=== PATIENT | female | born 1975 | race Caucasian/White ===

== ENCOUNTER 2019-04-23 17:29 | Emergency (ER) | payer OTHER, SELFPAY ==
--- NOTE | ~2019-04-23 | XR_ITS ---
EXAMINATION: XR lumbar spine 2-3V DATE: 04/23/2019 18:43 INDICATION: Low back pain TECHNIQUE: Anteroposterior and lateral views of the lumbar spine, and cone-down lateral view of the l umbosacral junction were obtained. COMPARISON: 11/26/2009 FINDINGS: There is a chronic 2.4 cm stone projecting in the lower pole of the left kidney. No stones project along the expected course of the ureters. Surgical clips in the right upper quadrant are like ly from prior cholecystectomy. A moderate volume of colonic stool is present. There is mild loss of i ntervertebral disc space height at L5-S1. The vertebral body heights and alignment are normal. There is no fracture. Small degenerative osteophytes project from the anterior endplates of multiple verteb ral bodies. IMPRESSION: 1. Mild lumbar spondylosis without acute findings or significant interval change. 2. Unchanged left nephrolithiasis. Reviewed, dictated and finalized at location A. FELLER OPERATOR IMPRESSION: 1. Mild lumbar spondylosis without acute findings or significant interval brown e. 2. Unchanged left nephrolithiasis.
[2019-04-23 18:09] VITALS: BP 125/63; PULSE 76; RESP 18; TEMP 36.8; O2SAT 100
[2019-04-23] MEDS: KETOROLAC (*BKC) 60 MG/2 ML VIAL 30 MG IM (18:29)
[2019-04-23] MEDS: methylPREDNISolone SOD SUCC 125 MG VIAL IM (18:30)
--- NOTE | 2019-04-23 19:27 | ED.BACK ---
HPI - Back Pain/Injury General Chief Complaint: Back Pain/Injury <Mavis Gleason PA-C - Last Filed: 04/23/19 21:22> Stated Complaint: back pain <SHANNON Vaughan Last Filed: 04/23/19 21:22> Time Seen by Provider: 04/23/19 17:43 <SHANNON Vaughan Last Filed: 04/23/19 21:22> Source: patient <SHANNON Vaughan Last Filed: 04/23/19 21:22> Mode of arrival: ambulatory <SHANNON Vaughan Last Filed: 04/23/19 21:22> Limitations: no limitations <SHANNON Vaughan Last Filed: 04/23/19 21:22> History of Present Illness HPI Narrative: Patient presents with chief complaint of pain to the low back that occasionally radiates down her right leg. 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 Patient states she has had issues with sciatica in the past. Patient states she has been taking Tylenol for pain as she is unable to take oral NSAIDs due to gastric sleeve. Patient states that symptoms have been intermittent over the past 2 to 3 weeks. Patient states she has an appointment with her primary care on Tuesday but she cannot wait due to discomfort. Patient denies any urinary symptoms, radiation of pain into the groin or other signs of kidney stone. Patient denies chance of . <Mavis Gleason PA-C - Last Filed: 04/23/19 21:22> Related Data Home Medications: Home Medications Medication Instructions Recorded Confirmed bupropion HCl PO 04/23/19 buspirone mg 04/23/19 escitalopram oxalate mg 04/23/19 levothyroxine 04/23/19 loratadine mg 04/23/19 ropinirole mg 04/23/19 <Mavis Gleason PA-C - Last Filed: 04/23/19 21:22> Allergies/Adverse Reactions: Allergies Allergy/AdvReac Type Severity Reaction Status Date / Time NSAIDS (Non-Steroidal AdvReac Unknown Other Verified 04/23/19 18:20 Anti-Inflamma <Mavis Gleason PA-C - Last Filed: 04/23/19 21:22> Review of Systems Review of Systems: Narrative: CONSTITUTIONAL: Denies fever, chills, or sweats. EYES: Denies visual changes, redness, or discharge. ENT: Denies rhinorrhea, congestion, sore throat, or otalgia. CARDIOVASCULAR: Denies chest pain, palpitations, or edema. RESPIRATORY: Denies cough or dyspnea. GASTROINTESTINAL: Denies abdominal pain, nausea, vomiting, or diarrhea. GENITOURINARY: Denies dysuria or hematuria. SKIN: Denies rash or itching. MUSCULOSKELETAL: Reports back pain, denies joint pain, or myalgia. NEUROLOGIC: Denies headache, numbness, dizziness, or weakness. PSYCHIATRIC: Denies anxiety or depression. <Mavis Gleason PA-C - Last Filed: 04/23/19 21:22> PMFSH Past Medical History Medical History: Medical History (Updated 04/24/19 @ 00:00 by Ellie Do) Anxiety Depression Hypothyroidism <Mavis Gleason PA-C - Last Filed: 04/23/19 21:22> Surgical History Surgical History: Surgical History (Updated 04/23/19 @ 19:30 by Mavis Gleason PA-C) History of gastric surgery <Mavis Gleason PA-C - Last Filed: 04/23/19 21:22> Social History Social History: Social History (Updated 04/23/19 @ 19:31 by Mavis Gleason PA-C) Smoking status: Never smoker Substance use: never Gender identity (if verbalized by the patient): Female <Mavis Gleason PA-C - Last Filed: 04/23/19 21:22> Exam Narrative: Exam Narrative: GENERAL: Well-appearing, well-nourished, and in no acute distress. HEAD: Normocephalic, atraumatic. EYES: PERRLA and EOMI. ENT: Nares clear, no rhinorrhea or epistaxis. Mucous membranes moist. Oropharynx without tonsillar hypertrophy exudate or other lesions. Bilateral TMs pearly kearns nonbulging NECK: Supple. No adenopathy or masses. Range of motion intact CHEST: Clear to auscultation. No respiratory distress. No wheezes rales or rhonchi HEART: Regular rate and rhythm. No murmur heard. Normal peripheral pulses. BACK: Diffuse low back pain. No vertebral point tenderne
[2019-04-23 19:44] VITALS: BP 135/82; PULSE 84; RESP 16; TEMP 37; O2SAT 100
== END 2019-04-23 19:47 | disposition home or self-care (01) ==
PROVIDERS: Emergency Provider Emergency Medicine; PCP Physician Assistant
DX: S39.012A Strain of muscle, fascia and tendon of lower back, initial encounter (principal); M54.41 Lumbago with sciatica, right side; F41.9 Anxiety disorder, unspecified; F32.9 Major depressive disorder, single episode, unspecified; E03.9 Hypothyroidism, unspecified; X50.0XXA Overexertion from strenuous movement or load, initial encounter
CPT/HCPCS: 72100; 96372; 99284; J1885; J2930

== ENCOUNTER 2019-05-03 17:00 | Outpatient (CLI) | payer OTHER, SELFPAY ==
--- NOTE | ~2019-05-03 | MR_ITS ---
EXAMINATION: MR lumbar spine wo con DATE: 05/03/2019 17:29 INDICATION: Acute bilateral low back pain. TECHNIQUE: Magnetic resonance imaging (MRI) of the lumbar spine was performed without intravenous con trast. Sequences included sagittal T2-weighted FSE, sagittal T2-weighted FS FSE, sagittal T1-weighted FSE, and axial T2-weighted FSE. COMPARISON: Lumbar spine radiographs 04/23/2019 FINDINGS: There is 4 degrees levocurvature of lumbar spine. There is mild chronic anterior wedging of T11 and T12 vertebral bodies, likely physiologic. There is mildly decreased disc height at L2-L3 and L3-L4. The distal spinal cord signal intensity is normal. The conus medullaris is at L1-L2. There is a 17 mm stone in left kidney lower pole. There is mild left hydronephrosis with transition point at the ureteropelvic junction. The following disc levels are specifically discussed: L1-L2: The disc does not extend beyond the endplate margin. There is mild bilateral facet joint osteo arthritis. There is no neural foraminal stenosis. There is no central canal stenosis. L2-L3: The disc is bulging and has an annular fissure. There is mild bilateral facet joint osteoarthr itis. There is mild bilateral neural foraminal stenosis. There is mild central canal stenosis. L3-L4: The disc is bulging with superimposed right subarticular extrusion. There is mild bilateral fa cet joint osteoarthritis. There is mild bilateral neural foraminal stenosis. There is mild central ca nal stenosis. L4-L5: The disc is bulging. There is mild bilateral facet joint osteoarthritis. There is mild bilater al neural foraminal stenosis. There is mild central canal stenosis. L5-S1: The disc does not extend beyond the endplate margin. There is mild right facet joint osteoarth ritis. There is no neural foraminal stenosis. There is no central canal stenosis. IMPRESSION: 1. Mild lumbar spondylosis. 2. 17 mm left kidney stone. 3. Mild left hydronephrosis with transition point at the ureteropelvic junction. Reviewed, dictated and finalized at location A. UNICATIONS PROJECT LEAD IMPRESSION: 1. Mild lumbar spondylosis. 2. 17 mm left kidney stone. 3. Mild left hydronephrosis with transition point at the ureteropelvic junction .
== END 2019-05-03 17:01 | disposition home or self-care (01) ==
PROVIDERS: PCP Physician Assistant
DX: M54.5 Low back pain (principal); M47.816 Spondylosis without myelopathy or radiculopathy, lumbar region; N20.0 Calculus of kidney; N13.30 Unspecified hydronephrosis
CPT/HCPCS: 72148

== ENCOUNTER 2019-05-11 10:20 | Outpatient (CLI) | payer OTHER, SELFPAY ==
--- NOTE | ~2019-05-11 | CT_ITS ---
EXAMINATION: CT abdomen pelvis wo con DATE: 05/11/2019 10:36 INDICATION: Calculus of kidney TECHNIQUE: Computed tomography (CT) of the abdomen and pelvis was performed without intravenous contr ast. The dose-length product (DLP) was 426.76 mGy-cm. Automated exposure control and iterative recons truction technique were employed. COMPARISON: MRI, 05/03/2019 FINDINGS: Minimal dependent atelectasis is present in the lung bases. The heart size is normal. Small sliding hiatal hernia is present. Surgical changes in the stomach are consistent with gastric bypass . The gallbladder is surgically absent. The liver, spleen, pancreas, and adrenal glands are normal. T he right kidney is unremarkable. There is a 2.0 cm stone of the left kidney lower pole. There is unch anged mild left hydronephrosis with transition point at the ureteropelvic junction. No pathologically enlarged abdominal or pelvic lymph nodes are identified. There is no free intraperitoneal gas or olive dence of bowel obstruction. A moderate volume of colonic stool is present. There is mild lumbar spond ylosis. IMPRESSION: 1. Stable mild left hydronephrosis with transition point at the left ureteropelvic junction. 2. 2 cm nonobstructing stone of the left kidney lower pole. Reviewed, dictated and finalized at location A. UCTION CONTROL MANAGER IMPRESSION: 1. Stable mild left hydronephrosis with transition point at the left ureteropel shayna junction. 2. 2 cm nonobstructing stone of the left kidney lower pole.
== END 2019-05-11 10:21 | disposition home or self-care (01) ==
PROVIDERS: PCP Physician Assistant; Visit Provider Physician Assistant
DX: N20.0 Calculus of kidney (principal)
CPT/HCPCS: 74176

== ENCOUNTER 2019-06-20 14:25 | Outpatient (CLI) | payer OTHER, SELFPAY ==
--- NOTE | ~2019-06-20 | MR_ITS ---
EXAMINATION: MR thoracic spine wo con EXAM DATE: 06/20/2019 16:24 INDICATION: Mid back pain, left leg pain. TECHNIQUE: Multi-sequential, multiplanar MR images of the thoracic spine were obtained without contra st. Sagittal T1, T2, T2 fat saturation, axial T2 weighted images reviewed. There is no prior study for comparison. FINDINGS: The vertebral bodies are aligned in the AP dimension. Mild mid thoracic disc disease.. Ther e are small mid thoracic disc protrusions without causing significant neural foraminal stenosis. Ther e is a midthoracic 1 cm hemangioma. The vertebral body marrow is otherwise normal in signal intensity . There is mild thoracic facet arthropathy. Neural foramen are widely patent. The spinal cord signal intensity and intrinsic morphology is normal. IMPRESSION: Mild thoracic spondylosis. Normal cord signal. Reviewed, dictated and finalized at location B.
--- NOTE | ~2019-06-20 | MR_ITS ---
EXAMINATION: MR cervical spine wo con EXAM DATE: 06/20/2019 16:24 INDICATION: Low back pain, right lumbar radiculopathy. Left leg pain. TECHNIQUE: Multi-sequential, multiplanar MR images of the cervical spine were obtained without contra st. Axial T2, axial T2 MERGE sequence. Sagittal T1, T2, T2 fat saturation images also obtained. Th ere is no prior study for comparison. FINDINGS: The vertebral bodies are aligned in the AP dimension. There is mild mid lumbar disc diseas e. Vertebral body heights are maintained. The spinal cord signal intensity and intrinsic morphology i s normal. Cervicomedullary junction is normal in appearance. There are no suspicious marrow signal ab normalities. Paraspinal soft tissue is unremarkable. Level by level evaluation: C2-C3: Disc does not extend beyond the endplate margin. Uncovertebral joint arthropathy: Mild left. Facet joint arthropathy: Mild bilateral. Neural foraminal stenosis: No stenosis. Central canal stenosis: No stenosis. C3-C4: Disc does not extend beyond the endplate margin. Uncovertebral joint arthropathy: Minimal bilateral. Facet joint arthropathy: Mild bilateral. Neural foraminal stenosis: No stenosis. Central canal stenosis: No stenosis. C4-C5: Mild bilateral Uncovertebral joint arthropathy: Mild bilateral. Facet joint arthropathy: Mild right. Neural foraminal stenosis: No stenosis. Central canal stenosis: No stenosis. C5-C6: There is a mild diffuse disc bulge. Uncovertebral joint arthropathy: Mild bilateral. Facet joint arthropathy: Mild bilateral. Neural foraminal stenosis: Mild bilateral. Central canal stenosis: Minimal. C6-C7: There is a mild diffuse disc bulge. Uncovertebral joint arthropathy: Mild to moderate bilateral. Facet joint arthropathy: Mild bilateral. Neural foraminal stenosis: Mild to moderate bilateral. Central canal stenosis: Mild. C7-T1: Disc does not extend beyond the endplate margin. Uncovertebral joint arthropathy: None. Facet joint arthropathy: None. Neural foraminal stenosis: No stenosis. Central canal stenosis: No stenosis. IMPRESSION: 1. Mild cervical spondylosis. 2. Normal cord signal. Reviewed, dictated and finalized at location B.
== END 2019-06-20 14:26 | disposition home or self-care (01) ==
PROVIDERS: PCP Physician Assistant
DX: M79.605 Pain in left leg (principal); M47.892 Other spondylosis, cervical region; M47.894 Other spondylosis, thoracic region
CPT/HCPCS: 72141; 72146

== ENCOUNTER 2019-11-19 15:41 | Emergency (ER) | payer OTHER, SELFPAY ==
[2019-11-19 15:55] VITALS: BP 134/74; PULSE 105; RESP 16; TEMP 37.9; O2SAT 99
--- NOTE | 2019-11-19 15:57 | ED.GENADULT ---
HPI - General Adult General Chief complaint: Upper Respiratory Infection Stated complaint: sore throat Time Seen by Provider: 11/19/19 15:57 Source: patient Mode of arrival: ambulatory Limitations: no limitations History of Present Illness HPI narrative: 44-year-old female patient presents to the [facility] with complaints of sore throat for the past 3 days. Patient states that she has been very sore that it hurts to eat or swallow. Patient states she has not taken anything for pain. Patient denies any fevers, body aches or chills. Denies any ear pain but states that the glands her neck are sore. Denies any chest pain, shortness of breath, abdominal pain, nausea, vomiting or diarrhea. Related Data Home Medications Medication Instructions Recorded Confirmed bupropion HCl 100 mg PO DAILY 04/23/19 11/19/19 buspirone 7.5 mg DAILY 04/23/19 11/19/19 escitalopram oxalate 20 mg DAILY 04/23/19 11/19/19 loratadine 10 mg DAILY 04/23/19 11/19/19 ropinirole 0.5 mg DAILY 04/23/19 11/19/19 gabapentin 300 mg DAILY 11/19/19 11/19/19 levothyroxine [Euthyrox] 75 mcg DAILY 11/19/19 11/19/19 Allergies Allergy/AdvReac Type Severity Reaction Status Date / Time NSAIDS (Non-Steroidal AdvReac Unknown Other Verified 11/19/19 15:50 Anti-Inflamma Review of Systems Review of Systems: Narrative: CONSTITUTIONAL: Denies fever, chills, or sweats. EYES: Denies visual changes, redness, or discharge. ENT: Denies rhinorrhea, congestion, positive sore throat, denies otalgia. CARDIOVASCULAR: Denies chest pain, palpitations, or edema. RESPIRATORY: Denies cough or dyspnea. GASTROINTESTINAL: Denies abdominal pain, nausea, vomiting, or diarrhea. GENITOURINARY: Denies dysuria or hematuria. SKIN: Denies rash or itching. MUSCULOSKELETAL: Denies back pain, joint pain, or myalgia. NEUROLOGIC: Denies headache, numbness, or weakness. PSYCHIATRIC: Denies anxiety or depression. [facility] Past Medical History Medical History Anxiety Depression Hypothyroidism Surgical History Surgical History History of gastric surgery Social History Social History Smoking status: Never smoker Substance use: never Gender identity (if verbalized by the patient): Female Comments At the time of my signature I agree with nursing past medical history, surgical, social, and family history. There is no relevant family history pertinent to the presenting complaint. Exam Narrative: Exam Narrative: GENERAL: Well-appearing, well-nourished, and in no acute distress. HEAD: Normocephalic, atraumatic. EYES: PERRLA and EOMI. ENT: Nares clear, no rhinorrhea or epistaxis. Mucous membranes moist. Posterior pharynx with erythema, 2+ tonsil enlargement and exudate noted on the right side. Bilateral TMs are clear no erythema or foreign bodies to the canal. NECK: Supple. No lymphadenopathy CHEST: Clear to auscultation. No respiratory distress. HEART: Regular rate and rhythm. No murmur heard. Normal peripheral pulses. ABDOMEN: Soft, nontender, nondistended, normal active bowel sounds. EXTREMITIES: Normal range of motion. No edema. SKIN: Warm, dry, no rash. NEURO: No focal deficits. Alert and oriented x3. Course Reevaluation(s) Reevaluation #1: Reevaluated patient. Notified her that she is positive today for strep. Discussed with her we will discharge her home with some antibiotics for the strep infection. Patient verbalized understanding. Discussed with patient that I highly recommend that she get some [id number] Chloraseptic spray to help her swallow and stay hydrated. Patient verbalized understanding of this denies any other questions or concerns at this time. Date: 11/19/19 Time: 16:14 Vital Signs Vital signs: Vital Signs Temperature 37.9 C H 11/19/19 15:55 Pulse Rate 105 H 11/19/19 15:55 Respiratory Rate
== END 2019-11-19 16:16 | disposition home or self-care (01) ==
PROVIDERS: Emergency Provider Nurse Practitioner Family; PCP Physician Assistant
DX: J02.0 Streptococcal pharyngitis (principal); E03.9 Hypothyroidism, unspecified; F41.9 Anxiety disorder, unspecified; F32.9 Major depressive disorder, single episode, unspecified; Z98.84 Bariatric surgery status
CPT/HCPCS: 87880; 99213; G0463

== ENCOUNTER 2021-03-09 11:38 | Emergency (ER) | payer OTHER, SELFPAY ==
[2021-03-09 11:52] VITALS: BP 115/63; PULSE 80; RESP 16; TEMP 36.8; O2SAT 99
[2021-03-09 11:53] VITALS: BP 115/63; PULSE 80; RESP 16; TEMP 36.8; O2SAT 99
--- NOTE | 2021-03-09 12:51 | ED.URI ---
HPI - URI/Sore Throat General Chief Complaint: Upper Respiratory Infection Stated Complaint: Sinus pressure, runny nose, cough Time Seen by Provider: 03/09/21 12:51 Source: patient Mode of arrival: ambulatory Limitations: no limitations History of Present Illness HPI Narrative: Sully Beebe is a 45 yo female with PMH of anxiety and deptression, hypothyroid, who [facility] sinus pressure, runny nose, cough she is afebrile vital signs are stable. PCPs office she states would not see her without her getting a Covid test first Related Data Home Medications Medication Instructions Recorded Confirmed bupropion HCl 100 mg PO DAILY 04/23/19 03/09/21 buspirone 7.5 mg DAILY 04/23/19 03/09/21 escitalopram oxalate 20 mg DAILY 04/23/19 03/09/21 loratadine 10 mg DAILY 04/23/19 03/09/21 gabapentin 300 mg DAILY 11/19/19 03/09/21 levothyroxine [Euthyrox] 75 mcg DAILY 11/19/19 03/09/21 Allergies Allergy/AdvReac Type Severity Reaction Status Date / Time NSAIDS (Non-Steroidal AdvReac Unknown Other Verified 03/09/21 12:06 Anti-Inflamma Review of Systems Review of Systems: CONSTITUTIONAL: Denies fever, chills, sweats. EYES: Denies visual changes, redness, discharge. ENT: Has rhinorrhea, has congestion, sore throat, otalgia. CARDIOVASCULAR: Denies chest pain, palpitations, edema. RESPIRATORY: Denies dyspnea, wheezing, has cough GASTROINTESTINAL: Denies abdominal pain, nausea, vomiting, diarrhea. GENITOURINARY: Denies dysuria, hematuria, abnormal discharge SKIN: Denies rash or itching. NEUROLOGIC: Denies numbness, or focal weakness. PSYCHIATRIC: Denies anxiety or depression. [facility] Past Medical History Medical History (Updated 03/09/21 @ 13:04 by Ledy Medrano CNP) Anxiety Depression Hypothyroidism Surgical History Surgical History History of gastric surgery Social History Social History Smoking status: Never smoker Alcohol use details: none Substance use: never Gender identity (if verbalized by the patient): Female Comments At time of signature, I agree with nursing past medical, surgical, social and family history. There is no relevant family history pertinent to the presenting complaint. Exam Narrative: GENERAL: This is a well-nourished, well-developed patient, in mild distress. HEAD: normocephalic, atraumatic. EYES: Sclera clear/white. Vision is grossly intact. EARS: External ears normal, auditory canals erythema and without drainage, TMs normal without perforation. Hearing grossly intact. NOSE: External nose normal without nasal discharge, nares without redness, mild rhinorrhea. THROAT: Mucous membranes moist, posterior pharynx scratchy and erythema NECK: Neck supple, non-tender CARDIOVASCULAR: Regular rate and rhythm without murmurs, gallops, or rubs. RESPIRATORY: Clear to auscultation. Breath sounds equal bilaterally. No wheezes, rales, or rhonchi. GASTROINTESTINAL: Abdomen soft, non-tender, SKIN: warm, intact with no suspicious lesions or rash, good texture and turgor. NEURO: awake, alert, and oriented to person, place and time. There were no obvious focal neurologic abnormalities. Steady gait EXTREMITIES: Normal range of motion. 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
== END 2021-03-09 13:15 | disposition home or self-care (01) ==
PROVIDERS: Emergency Provider Nurse Practitioner
DX: J06.9 Acute upper respiratory infection, unspecified (principal); Z20.822 Contact with and (suspected) exposure to COVID-19; E03.9 Hypothyroidism, unspecified; F32.9 Major depressive disorder, single episode, unspecified; F41.9 Anxiety disorder, unspecified
CPT/HCPCS: 99213; G0463

== ENCOUNTER 2023-05-07 11:25 | Emergency (ER) | payer OTHER, SELFPAY ==
[2023-05-07 11:49] VITALS: BP 130/79; PULSE 81; RESP 16; TEMP 36.6; O2SAT 99
--- NOTE | 2023-05-07 12:47 | ED.URI ---
HPI - URI/Sore Throat General Chief Complaint: Upper Respiratory Infection Stated Complaint: Sinus Time Seen by Provider: 05/07/23 12:47 Source: patient Mode of arrival: ambulatory Limitations: no limitations History of Present Illness HPI Narrative: 47-year-old female presents with complaint nasal congestion, sinus pressure, postnasal drainage since mid March. States she took amoxicillin for 7 days with no improvement in symptoms. Takes Елена daily. Has not tried any other [id number] medications to treat symptoms such as a nasal spray. Patient has not seen her primary care physician for this complaint. Afebrile. All systems reviewed and negative except as noted above. Related Data Home Medications Medication Instructions Recorded Confirmed bupropion HCl 100 mg tablet,12 hr 100 mg PO DAILY 04/23/19 03/09/21 sustained-release buspirone 7.5 mg tablet 15 mg DAILY 04/23/19 03/09/21 escitalopram oxalate 20 mg tablet 10 mg DAILY 04/23/19 03/09/21 loratadine 10 mg tablet 10 mg DAILY 04/23/19 03/09/21 gabapentin 300 mg capsule 300 mg DAILY 11/19/19 03/09/21 levothyroxine 88 mcg tablet 88 mcg PO DAILY 05/07/23 05/07/23 ropinirole 0.5 mg tablet 0.5 mg PO DAILY 05/07/23 05/07/23 Allergies Allergy/AdvReac Type Severity Reaction Status Date / Time NSAIDS (Non-Steroidal AdvReac Unknown Other Verified 05/07/23 11:53 Anti-Inflamma Review of Systems Review of Systems: CONSTITUTIONAL: Denies fever, chills, or sweats. EYES: Denies visual changes, redness, or discharge. ENT: Reports rhinorrhea, congestion, sinus pressure. Reports sore throat, or otalgia. CARDIOVASCULAR: Denies chest pain, palpitations, or edema. RESPIRATORY: Denies cough or dyspnea. GASTROINTESTINAL: Denies abdominal pain, nausea, vomiting, or diarrhea. GENITOURINARY: Denies dysuria or hematuria. SKIN: Denies rash or itching. MUSCULOSKELETAL: Denies back pain, joint pain, or myalgia. NEUROLOGIC: Denies headache, numbness, or weakness. PSYCHIATRIC: Denies anxiety or depression. All other systems reviewed are negative, except as documented in HPI. [facility] Past Medical History Medical History (Updated 05/07/23 @ 12:53 by Anni Villagran NP) Anxiety Depression Hypothyroidism Surgical History Surgical History History of gastric surgery Social History Social History Smoking status: Never smoker Alcohol use details: none Substance use: never Gender identity (if verbalized by the patient): Female Comments At time of signature, agree with nursing past medical, surgical, social and family history. There is no relevant family history pertinent to the presenting complaint. Exam Narrative: GENERAL: This is a well-nourished, well-developed patient, in no apparent distress. HEAD: normocephalic, atraumatic. EYES: PERRL. Sclera clear/white. Vision is grossly intact. EARS: External ears normal, auditory canals clear and without drainage, Fluid to bilateral TMs without erythema or perforation. Hearing grossly intact. NOSE: External nose normal with purulent nasal drainage, erythema and swelling to bilateral nares, large amount of congestion. Frontal and maxillary sinus tenderness on palpation. THROAT: Mucous membranes moist, postnasal drainage NECK: Neck supple, non-tender without lymphadenopathy, masses or thyromegaly. CARDIOVASCULAR: Regular rate and rhythm without murmurs, gallops, or rubs. RESPIRATORY: Clear to auscultation. Breath sounds equal bilaterally. No wheezes, rales, or rhonchi. SKIN: warm, Dry, intact with no suspicious lesions or rash, good texture and turgor. NEURO: awake, alert, and oriented to person, place and time. There were no obvious focal neurologic abnormalities. EXTREMITIES: No joint tenderness, effusion, or edema noted. Course Course Level of Care: Express Care Visit Shanelle
== END 2023-05-07 12:55 | disposition home or self-care (01) ==
PROVIDERS: Emergency Provider Nurse Practitioner Family; PCP Physician Assistant
DX: J01.90 Acute sinusitis, unspecified (principal); F41.9 Anxiety disorder, unspecified; F32.A Depression, unspecified; E03.9 Hypothyroidism, unspecified
CPT/HCPCS: 99213; G0463

== ENCOUNTER 2023-11-06 08:52 | Emergency (ER) | payer OTHER, SELFPAY ==
--- NOTE | 2023-11-06 09:31 | PC.NURSE ---
see down time documentation. dylon so rn
--- NOTE | 2023-11-06 11:00 | PC.NURSE ---
SEE DOWNTIME DOCUMENTATION. LUIS JACKSON RN
== END 2023-11-06 09:35 | disposition home or self-care (01) ==
PROVIDERS: Emergency Provider Nurse Practitioner; PCP Physician Assistant
DX: J01.90 Acute sinusitis, unspecified (principal); Z98.84 Bariatric surgery status
CPT/HCPCS: 99213; G0463

== ENCOUNTER 2024-04-18 10:07 | Emergency (ER) | payer OTHER, SELFPAY ==
--- NOTE | 2024-04-18 10:15 | ED_ITS ---
HPI - URI/Sore Throat General Chief Complaint: Upper Respiratory Infection Stated Complaint: Cough/Sinus Time Seen by Provider: 04/18/24 10:51 Source: patient and RN notes reviewed Mode of arrival: ambulatory Limitations: no limitations History of Present Illness HPI Narrative: 48-year-old female presents concern for 3-4 day history of sinus congestion, drainage, sinus pressure and headaches. Reports cough that is productive. Reports cough makes her chest tight in uncomfortable. Reports body aches sore drip, low-grade temperature. Reports she has been taking [id number] medications without MD elicited complaint: cough and nasal congestion Related Data Home Medications ?Medication ?Instructions ?Recorded ?Confirmed ?Last Taken ?Type bupropion HCl 100 mg tablet,12 hr 100 mg PO DAILY 04/23/19 03/09/21 Unknown History sustained-release buspirone 7.5 mg tablet 15 mg DAILY 04/23/19 03/09/21 Unknown History escitalopram oxalate 20 mg tablet 10 mg DAILY 04/23/19 03/09/21 Unknown History loratadine 10 mg tablet 10 mg DAILY 04/23/19 03/09/21 Unknown History gabapentin 300 mg capsule 300 mg DAILY 11/19/19 03/09/21 Unknown History levothyroxine 88 mcg tablet 88 mcg PO DAILY 05/07/23 05/07/23 Unknown History ropinirole 0.5 mg tablet 0.5 mg PO DAILY 05/07/23 05/07/23 Unknown History Allergies Allergy/AdvReac Type Severity Reaction Status Date / Time NSAIDS (Non-Steroidal AdvReac Unknown Other Verified 04/18/24 10:16 Anti-Inflamma Review of Systems Review of Systems: CONSTITUTIONAL: Reports malaise, low-grade fever. EYES: Denies visual changes, redness, or discharge. ENT: Reports rhinorrhea, congestion, sinus pain, otalgia and sore throat. CARDIOVASCULAR: Denies chest pain, palpitations, or edema. RESPIRATORY: Reports productive cough. Denies dyspnea. GASTROINTESTINAL: Denies abdominal pain, nausea, vomiting, diarrhea SKIN: Denies rash or itching. MUSCULOSKELETAL: Reports myalgia. NEUROLOGIC: Reports headache. All systems reviewed & are unremarkable except as noted in HPI and below PMFSH Past Medical History Medical History (Updated 04/18/24 @ 10:59 by Kerri Lima NP) Hypothyroidism Depression Anxiety Surgical History Surgical History History of gastric surgery Social History Social History Smoking status: Never smoker Alcohol use details: none Substance use: never Gender identity (if verbalized by the patient): Female Comments At time of signature, agree with nursing past medical, surgical, social and f amily history. There is no relevant family history pertinent to the presenting complaint Exam Narrative: GENERAL: Nontoxic-appearing, well-nourished, and in no acute distress. HEAD: Normocephalic EYES: PERRLA, conjunctivae clear ENT: Nares clear. Mucous membranes moist. TM pearly kearns with dull light reflex bilaterally; no tragal tenderness. Oropharynx not erythematous without lesions. Tonsils not enlarged and without exudate, no drooling, no hoarseness, no trismus, uvula midline. NECK: Supple. No lymphadenopathy CHEST: Clear to auscultation, breath sounds equal. No wheezing, rhonchi, rales, or stridor. No respiratory distress, speaks in full sentences. Tight cough noted HEART: Regular rate and rhythm. No murmur heard. SKIN: Warm, dry, no rash. NEURO: Alert and oriented x3. PSYCH: Normal mood and affect Course Course Emergency Course: Patient is aware of diagnosis, understands and agrees to treatment plan. Anticipatory guidance given. Patient agrees to follow-up as directed and is aware of reasons to seek care at the emergency department. Portions of this record may have been created with voice recognition software Level of Care: Express Care Visit Vital Signs Vital signs: Reviewed. MDM - URI/Sore Throat MDM Narrative Medical decision making narrative: Differential diagnosis considered: Reed virus, strep pharyngitis, allergic rhinitis, upper respiratory tract infection, sinusitis, rhinosinusitis, nasopharyngitis. viral pharyngitis, otitis media, otitis externa, pneumonia, bronchitis, viral cough syndrome, viral syndrome, and influenza. Exam findings show no acute concerns or changes; patient is non-toxic appearing and is in no distress. Patient is appropriate for outpatient treatment and follow-up. Lab Data Attestation: I reviewed the patient's lab results. Critical Care Time Critical Care Time Critical Care Time: No Discharge Plan Discharge Clinical Impression: Influenza A Patient Disposition: Home, Self-Care Condition: Stable Instructions: Influenza (ED) Additional Instructions: -Take strict precautions to prevent the spread of your virus. Be diligent about covering your cough (even when you are alone) and washing your hands frequently. -You may contagious until you have been symptom and/or fever free for 24 hours without fever reducing medicine -Alternate Ibuprofen and Tylenol for pain and fever relief (per package directions) -Some Cough medicines may make you drowsy, do not take it if you have to make important decisions, drive, or work. -Drink plenty of fluid - drink fluid with electrolytes such as Gatorade or other oral re-hydration solution. Avoid caffeine, which can make dehydration worse. -Get plenty of rest to help your body heal. -Use a cool mist humidifier for chest and nasal congestion. -Eat RAW honey or use cough drops to ease throat discomfort -Do not smoke or expose children to secondhand smoke -Wash your hands frequently. -Please follow-up with your primary care doctor in the next 1-2 days if your symptoms do not improve. -If you have any worsening of symptoms or any other concerns please go to the ED immediately. -Please take medications as prescribed and continue taking your home medications as usual. Patient Language: [place] Prescriptions: New promethazine-DM 6.25-15 mg/5 mL syrup 5 ml PO Q4-6H PRN (Reason: cough) Qty: 120 0RF methylprednisolone [Medrol (Arsalan)] 4 mg tablets,dose pack See Rx Instructions .ROUTE .COMPLEX Qty: 21 0RF Rx Instructions: orally per package directions No Action gabapentin 300 mg capsule 300 mg DAILY levothyroxine 88 mcg tablet 88 mcg PO DAILY ropinirole 0.5 mg tablet 0.5 mg PO DAILY bupropion HCl 100 mg tablet sustained-release 12 hr 100 mg PO DAILY buspirone 7.5 mg tablet 15 mg DAILY loratadine 10 mg tablet 10 mg DAILY escitalopram oxalate 20 mg tablet 10 mg DAILY Follow-up/Referrals: Miriam,SHANNON Perry [Primary Care Provider] - Time of Disposition: 11:00
[2024-04-18 10:20] VITALS: BP 115/61; PULSE 110; RESP 16; TEMP 38.2; O2SAT 98
[2024-04-18 10:58] LABS: EDCOVIDSCREEN Negative (Negative); EDINFLUASCREEN Positive (Negative); EDINFLUBSCREEN Negative (Negative)
== END 2024-04-18 11:05 | disposition home or self-care (01) ==
PROVIDERS: Emergency Provider Nurse Practitioner; PCP Physician Assistant
DX: J10.1 Influenza due to other identified influenza virus with other respiratory manifestations (principal); Z20.822 Contact with and (suspected) exposure to COVID-19; E03.9 Hypothyroidism, unspecified; F41.9 Anxiety disorder, unspecified; F32.A Depression, unspecified
CPT/HCPCS: 87426; 87804; 99213; G0463